=== PATIENT | male | born 1965 | race Caucasian/White ===

== ENCOUNTER 2018-06-10 06:43 | Inpatient (IN) | payer BC, SELFPAY ==
--- NOTE | 2018-05-29 14:02 | EKG12_ITS ---
Test Reason : Blood Pressure : / mmHG Vent. Rate : 061 BPM Atrial Rate : 061 BPM P-R Int : 136 ms QRS Dur : 084 ms QT Int : 396 ms P-R-T Axes : 001 -18 034 degrees QTc Int : 398 ms Normal sinus rhythm Leftward axis Confirmed by JUDE ROGERS, KELLEE ([id number]), fan mail editor HUMBERTO MCKEON ([id number]) on 06/01/2018 2:34:56 PM Referred By: Rj Carr Confirmed By:KELLEE ROQUE MD
[2018-05-29 14:17] VITALS: BP 134/82; PULSE 67; RESP 18; TEMP 36.3; O2SAT 93; BMI 33.8
[2018-05-29 16:45] LABS: Absolute Lymphocyte Count 2.12 X10^3/ul (0.83-4.51); Absolute Neutrophil Count 3.7 X10^3/uL (2.0-7.7); Basophil# 0.04 X10^3/uL; Basophil% 0.6 % (0-1); Eosinophil# 0.22 X10^3/uL; Eosinophils% 3.2 % (0-5); Hemoglobin 16.8 g/dl (13.0-16.5); Lymphocyte # 2.12 X10^3/ul (4.0); Lymphocyte % 30.6 % (19-41); Mean Corp Hgb Conc 33.6 g/gl (32-36); Mean Corpuscular Hgb 33.8 pg (27.0-32.0); Mean Corpuscular Volume 100.6 fL (80-94); Mean Platelet Vol. 9.5 fl (6.2-12.0); Monocyte# 0.82 X10^3/uL; Monocyte% 11.8 % (0-10); Neutrophil % 53.4 % (47-70); Platelet Count 177 K/mm3 (150-450); RBC Distribution Width CV 13.4 % (11.6-14.6); RBC Distribution Width SD 49.3 fl (35.1-43.9); Red Blood Count 4.97 M/mm3 (4.6-6.2); White Blood Count 6.9 K/mm3 (4.4-11.0)
[2018-05-29 16:47] LABS: POSITIVE COUNT NO; POSITIVE DIFFERENTIAL NO; POSITIVE MORPHOLOGY NO
[2018-05-29 17:00] LABS: Anion Gap 7 (5-15); BUN 17 mg/dL (7-18); BUN/Creat Ratio 15.6 RATIO (10-20); Calcium,Total 9.7 mg/dL (8.5-10.1); Chloride 104 mmol/L (98-107); Creatinine, Serum 1.09 mg/dL (0.70-1.30); EST Glomerular Filtration Rate 75 mL/min (>60); Est Glom Filt Rate - Afr Amer 91 mL/min (>60); Estimated Creatinine Clearance 89.59 ml/min; Glucose 78 mg/dL (74-106); Potassium 4.3 mmol/L (3.5-5.1); Sodium Level 141 mmol/L (136-145)
--- NOTE | 2018-06-02 14:06 | HP.PCM_ITS ---
History and Physical DATE OF SURGERY: 06/10/2018 SCHEDULED PROCEDURE: Revision left unicompartmental knee replacement to total knee arthroplasty HISTORY OF PRESENT ILLNESS: This is a 52-year-old male who presents today for ongoing pain in his left knee for the past 4-5 months. Patient underwent a previous left unicompartmental knee replacement approximately [address] Langston. Patient denied any postoperative infection or complications. Patient states his pain has been intermittent, aching, sharp, stabbing. Pain is increased with stairs, walking any amount of distance. Patient has difficult time with activities of daily living including housework, work, and working out. Patient feels unsafe with extended walking and with lifting. He has fallen and tripped/stumble secondary to his knee pain. Pain is primarily located over the medial joint line. Patient has tried previous prednisone and [id number] ibuprofen which has not provided any relief. He has been through formal physical therapy and home exercises with no relief in symptoms. Patient has tried rest, ice, and elevation with minimal relief. X-rays of the knee show lucencies under the tibial base plate consistent with loosening. Patient has medical history pertinent for hypertension. He currently denies any chest pain, shortness of breath, fevers chills, recent infections. After failing conservative measures and discussing all treatment options with Dr. Rj Carr the patient does wish to proceed with a revision left knee unicompartmental knee replacement to a left total knee arthroplasty. REVIEW OF SYSTEMS: ROS: Const: Denies change in appetite, fever and weight change. CV: Reports chest pain, but denies heart murmur and irregular heartbeat. Resp: Reports shortness of breath, but denies cough, pneumonia, tuberculosis and wheezing. GI: Reports constipation, diarrhea and heartburn, but denies nausea, rectal itching, bloody stools and vomiting. : Denies incontinence. Musculo: Denies leg swelling, pain, trouble walking and weakness. Skin: Reports tattoo, but denies Raynaud's and history of shingles. Neuro: Reports numbness/tingling but denies ambulatory dysfunction, dizziness and tremor. Psych: Reports stress, but denies anxiety and insomnia. Víctor/Lymph: Denies anemia, bleeding/bruising tendency and past transfusion. Reviewed, no changes. PAST MEDICAL HISTORY: Advance Care Plan: No Advance Directives Effective Date: 05/11/2018 PMH: Medical Problems: Arthritis, Vision Problems/Blind Accidents: None Surgical Hx: Hernia Repair - TIMKEN Tonsillectomy - TIMKEN LT Knee Arthroscopy, LT Knee Uni, RT Knee Arthroscopy Anesthesia Complications: None Assistive Devices: Glasses Reviewed and updated. SOCIAL HISTORY: SH: Marital: Single.Occupation: [employer].Work Status: Currently Working.Hand Dominance: Right-handed. Personal Habits: Cigarette Use: Heavy tobacco smoker (more than 10 cigarettes/ day).Alcohol: Occasionally.Drug Use: Denies Use.Enjoy Exercising: Exercises 1-3 x/month. Reviewed and updated. VITALS: Ht: 71 Wt: 255lb Wt k.668 BMI: 35.6 BP: 118/72 Pulse: 76 Resp: 16 T: 97.7 T: 36.5C ALLERGIES: Penicillin Biaxin Tape MEDICATIONS: No Active Medications PRE-OP EXAM: General appearance:NORMAL Other: Eyes: Conjunctivae and lids: NORMAL Pupils: ERR Ears, Nose, Mouth, and Throat: NORMAL Other: Inspection of lips, teeth and gums: NORMAL Other: Neck: Examination of neck: no masses noted. Respiratory: Assessment of respiratory effort: NORMAL Other: Auscultation of lungs: clear to auscultation no wheezes, rhonchi or rales. Cardiovascular: Auscultation of heart: regular rate and rhythm, no murmurs, gallops or rubs. Exam of carotid arteries: NORMAL Other: Gastrointestinal: Exam of abdomen: soft, nontender, nondistended bowel sounds present. PHYSICAL EXAMINATION: This without signs of infection. Patient does walk with a antalgic gait. There is tenderness to palpation over the medial joint line. Pain over the proximal medial tibia. Range of motion: Left knee lacks 3 of full extension to 120 of flexion. Patient does have positive effusion. Sensations intact to light touch. IMAGING STUDIES: X-rays of the left knee reveal a left medial unicompartmental knee replacement. There is lucencies under the tibial base plate consistent with loosening. IMPRESSION: 1. Painful left unicompartmental knee replacement with loosening 2. Hypertension PLAN: Dr. Carr did discuss and review with the patient all treatment options including surgical versus nonsurgical options. Patient does wish to proceed with the above-stated procedure. Potential risks, benefits, and complications of the procedure were discussed in detail including but not limited to , infection, nerve and blood vessel damage, persistent pain, numbness, tingling, paresthesias, blood clot, pulmonary embolism, and requirement for possible further surgery. The patient expressed full understanding and has no further questions for the doctor. Patient does agree to proceed with the above-stated procedure and has signed the surgery consent form. ___ I have re-examined the patient. There are no clinical changes since date of exam. ___ See progress notes for changes. ___ Dictated on admission Date: Time: Signature:
--- NOTE | 2018-06-08 16:04 | CASEMGMT ---
CONNIE MORGAN attempted to complete preop call for upcoming surgery. No answer, voice message left with return contact information. Per PAT patient plans to return home at discharge. SW will follow-up with patient after surgery.
[2018-06-10] VITALS (14 sets, daily range): BP systolic 94–144; BP diastolic 63–95; PULSE 59–99; RESP 16–20; TEMP 36.5–37.3; O2SAT 84–97; BMI 33.8; BMI 35.2
[2018-06-10] MEDS: oxyCODONE HCl Cr 10 MG Tablet PO (07:17)
[2018-06-10] MEDS: Acetaminophen 500 MG Tablet 1000 MG PO ×3 (07:18→21:54)
[2018-06-10] MEDS: Celecoxib 200 MG Capsule 400 MG PO (07:18)
--- NOTE | 2018-06-10 07:44 | PCM.OPRPT ---
Report of Operation Date of Procedure: 06/10/18 Pre-Operative Diagnosis: Failed left partial knee replacement, aseptic loosening, progression OA Post-Operative Diagnosis: Failed left partial knee replacement, aseptic loosening, progression OA Surgery/Procedure Performed:: Revision Left TKA entire tibia and femoral component Description of Surgical Findings:: Stable knee with good patella tracking electric motor controls assembler: Doreen Butler Type of Anesthesia:: General Anesthesiologist: Curtsi Cooper Special Medications: 600 mg clindamycin, 1 g vancomycin powder was placed in the wound, 1 g TXA at incision, 1 g TXA closure, 10 mg Decadron, joint cocktail (5 mg Duramorph, 30 mL of 0.5% Ropivicaine, 1000 units of epinephrine, 30 mg of Toradol) Specimen's removed: Bony cuts, 3 separate specimens were sent to microbiology Estimated Blood Loss (mL): 50 Fluids Replaced: 2000 ml crystalloid Description of Procedure: Implants used: 1. Samson size 7 triathlon posterior stabilized distal femoral component 2. Samson size 7 universal tibial baseplate 3. Perry X3 19 mm PS polyethylene 4. Perry X3 38 mm asymmetric patella Brief history operative indications: 52-year-old m with history of left knee partial knee replacement with increased pain and progressive osteoarthritis with radiographic findings with loss of joint space, osteophyte formation and subchondral sclerosis as well as radiolucencies around the tibial baseplate. Failed conservative measures as mentioned in the H&P. Discussion of total knee arthroplasty as well as risk and benefits were discussed the patient including but not limited to blood loss, DVTs, PEs, neurovascular damage, general risk of anesthesia including loss of life, and stiffness or instability were discussed with patient. Patient demonstrated understanding and was able to sign informed consent. Procedure: On the date of procedure patient's left lower extremity was marked in the preoperative area. The patient was then taken back to the operating room where the patient was placed on the table in the supine position. All bony prominences were identified a well-padded. Anesthesia assumed control of the C-spine and airway and remained controlled throughout the remainder of the procedure. A tourniquet was placed on the left upper thigh and the leg was prepped in a sterile fashion. The surgeon then scrubbed at this time .Upon reentering the room left lower extremity was draped in a standard orthopedic fashion. A timeout was then called and everyone agreed upon the side, the site, the procedure to be performed, patient's identity and antibiotics given. Esmarch bandage was used to exsanguinate the extremity and the tourniquet was placed up to 250 mmHg with the knee in flexion. A midline skin incision was made and sharp dissection was taken down through skin subcutaneous tissue and fat. The standard medial parapatellar incision was made and the patella was subluxed laterally. The standard deep MCL release was done and the fat pad was resected. Next our attention was directed to the femur. Navigation pins were placed, navigation was registered. The femoral component was removed using osteotomes and the salt. The distal femoral cutting block was pinned into place and 8 mm of distal femur resection was completed. The distal femoral cut was verified with navigation. The knee was then placed in deep flexion in the standard Emailage sizing guide was used to place the femoral component in 3? external rotation based on the posterior condyles. A size 7 4-in-1 cutting block was selected and pinned into place. The anterior cut was then made and checked for notching. The subsequent anterior chamfer cuts, posterior condylar cuts and posterior chamfer cuts were made while ensuring the MCL and LCL were protected. Our attention was then turned to the tibia where the tibial baseplate was removed using osteotomes and a saw. kooldiner tibial cutting guide was used to make the appropriate tibial cut 90 degrees from the mechanical axis. Navigation was then used to verify the cut. A size 7 tibial base plate was selected. the knee was flexed to 90 degrees and the soft tissues and posterior osteophytes were removed from the joint. 40 cc of the periarticular injection was injected into the posterior medial corner of the joint. Femoral notch cut was then made. The appropriate trials were then placed on the femur and tibia. A trial polyethylene was trialed to ensure proper balancing and stability of the knee. Patella tracking, was then verified and corrected appropriately as needed. The appropriate tibial internal rotation was then marked with a bovie. Our attention was then directed to the patella. The patella was everted and a flat resection was made. The lug holes were drilled and the patella trial was placed. Patellar tracking was checked and deemed appropriate. Once we were happy lug holes were drilled for the femur and trial components were removed. the tibia was subluxed and pinned into place and the keel was punched and the canal was reamed. Final components were verified and opened, and cement was mixed in a vacuum. Perry Simplex cement was used. The wound was copiously irrigated with normal saline. When the cement was ready the components were cemented into place starting with the tibia, femur and finally the patella. The trial poly component was placed and the knee was placed in full extension. All excess cement was removed in the process. Once the cement had cured the tracking, alignment and balance were verified and a size 19 mm PS polyethylene component was placed. Once the final components were placed the wound was copiously irrigated with normal saline solution and the periarticular injection was given. The wound was closed in a layer perea fashion using #1 vicryl interrupted sutures for the arthrotomy, 2-0 interrupted Vicryl suture for the subcuticular layer and rico for final skin closure. A sterile compressive dressing was then placed. The patient was then awakened from anesthesia, transferred to the [place] and transferred to the PACU for recovery. Post op plan DVT ppx: ASA 81mg, thigh high compression stockings Follow up: in office in 2 weeks for wound check PT: to start POD #0 at hospital, outpatient PT should be arranged. Grafts/Implants Used: Perry triathlon PS total knee replacement - Complications None - Admit VTE Documentation VTE Present on Admission: No VTE Mechan Device Prophylaxis: SCD's, Thigh High JYOTI Hose VTE Pharm Prophylaxis ordered?: Yes
[2018-06-10] MEDS: Lactated Ringers 1,000 ML 999 ML IV ×2 (08:00→12:57)
[2018-06-10] MEDS: Vancomycin IV 1,000 MG/20 ML Vial 1000 MG OPERA.SITE (11:22)
[2018-06-10] MEDS: Senna/Docusate Sodium 1 Tablet 2 TABLET PO ×2 (14:03→21:54)
[2018-06-10] MEDS: Famotidine 20 MG Tablet PO (14:04)
[2018-06-10] MEDS: Doxycycline 100 MG CAPSULE PO ×2 (14:04→21:54)
[2018-06-10] MEDS: oxyCODONE 5 MG Tablet PO ×2 (15:15→20:37)
[2018-06-10] MEDS: Aspirin 81 MG TAB.CHEW PO (16:04)
--- NOTE | 2018-06-10 16:59 | CHAPLAIN ---
Type of Pastoral Visit _x__ Initial Visit ___ Follow-up Visit ___ On-call Visit ___ General Patient Visit ___ Spiritual Assessment ___ Family Conference ___ Bereavement ___ Rapid Response ___ Code Blue ___ Other (describe below) Pastoral Care Referral From _x__ Patient ___ Family ___ Nurse ___ Physician ___ Sheet Turner ___ Assistant Plant Controller ___ Other (describe below) Sacrament/Intervention _x__ Active listening ___ Anointing ___ Confucianism ___ Bereavement ___ Communion _x__ Yarelis exploration ___ _x__ Life review _x__ Prayer ___ Reconciliation ___ Sacrament of Sick ___ Supportive presence ___ Wedding ___ Other (describe below) Pastoral Comments patient revealed some anxious thoughts about surgery and had wanted to talk to a run lead and have spiritual support; surgery was this morning and pt is doing fine; but he talked about his life growing up and how he has had a spiritual conversion and new outlook; prayer was welcomed; pt also sought out [employer] literature for reading
[2018-06-10] MEDS: Lactated Ringers 1,000 ML 125 ML IV (19:20)
--- NOTE | 2018-06-10 19:42 | NURSING ---
Pt states he can use the Nicotine patch due to the adhesive tape, states it has to be rotated, and tape can't be left on for several days.
[2018-06-11] MEDS: oxyCODONE 5 MG Tablet PO ×3 (02:36→13:18)
[2018-06-11 02:40] VITALS: BP 112/60; PULSE 78; RESP 16; TEMP 37.2; O2SAT 95
[2018-06-11] MEDS: Acetaminophen 500 MG Tablet 1000 MG PO ×2 (05:36→13:18)
[2018-06-11 07:37] LABS: Hematocrit 39.6 % (40-54); Hemoglobin 13.4 g/dl (13.0-16.5); Mean Corp Hgb Conc 33.8 g/gl (32-36); Mean Corpuscular Hgb 33.8 pg (27.0-32.0); Mean Corpuscular Volume 99.7 fL (80-94); Mean Platelet Vol. 10.1 fl (6.2-12.0); Platelet Count 164 K/mm3 (150-450); RBC Distribution Width CV 12.7 % (11.6-14.6); RBC Distribution Width SD 45.5 fl (35.1-43.9); Red Blood Count 3.97 M/mm3 (4.6-6.2); White Blood Count 17.1 K/mm3 (4.4-11.0)
[2018-06-11 07:42] LABS: Scan Indicated on CBC? Y/N NO
[2018-06-11 07:57] LABS: Anion Gap 11 (5-15); BUN 17 mg/dL (7-18); BUN/Creat Ratio 14.5 RATIO (10-20); Calcium,Total 8.4 mg/dL (8.5-10.1); Chloride 105 mmol/L (98-107); Creatinine, Serum 1.17 mg/dL (0.70-1.30); EST Glomerular Filtration Rate 69 mL/min (>60); Est Glom Filt Rate - Afr Amer 84 mL/min (>60); Estimated Creatinine Clearance 83.47 ml/min; Glucose 165 mg/dL (74-106); Potassium 4.3 mmol/L (3.5-5.1); Sodium Level 140 mmol/L (136-145)
[2018-06-11 08:00] VITALS: RESP 18
[2018-06-11] MEDS: Aspirin 81 MG TAB.CHEW PO (08:14)
[2018-06-11 09:24] VITALS: BP 118/70; PULSE 60; RESP 16; TEMP 36.4; O2SAT 96
[2018-06-11] MEDS: Doxycycline 100 MG CAPSULE PO (10:17)
[2018-06-11] MEDS: Celecoxib 200 MG Capsule PO (10:18)
[2018-06-11] MEDS: Famotidine 20 MG Tablet PO (10:18)
--- NOTE | 2018-06-11 14:00 | CASEMGMT ---
CONNIE CM in with patient to discuss discharge needs. Patient states that he needs a walker and shower chair. CONNIE MORGAN obtained scripts for FWW and shower chair. Patient is agreeable to [facility]. Referral sent to [facility] for FWW and shower chair and requested pricing on copay for shower chair. CONNIE MORGAN arranged for FWW to be delivered to [facility] prior to patient's discharge. CM to continue to follow this patient and plan for a safe discharge. Liliana WHITLEY, RN, CM
--- NOTE | 2018-06-11 14:06 | PCM.PN.ORT ---
Subjective: The patient was sitting in bedside chair upon examination. Patient denies any chest pain, shortness of breath, dizziness, lightheadedness, nausea or vomiting, or calf pain. Pain is controlled on medications. No adverse overnight events. Patient states he is doing well with physical therapy. Patient does wish to go home today. His pain is been controlled on medications. Objective: Vital signs stable and afebrile. Patient is able to plantarflex and dorsiflex actively. Sensation is intact to light touch to saphenous, sural, superficial and deep peroneal, and tibial distribution. Dressing is clean dry and intact. Negative Homans bilaterally, negative signs and symptoms of DVT. - Physical Exam General: Alert, Oriented x3, Cooperative, No apparent distress Vital Signs Temp Pulse Resp BP Pulse Ox 97.6 F L 60 16 118/70 96 06/11/18 09:24 06/11/18 09:24 06/11/18 09:24 06/11/18 09:24 06/11/18 09:24 Oxygen Flow Rate (L/min) 3 Oxygen Delivery Method Room Air Weight: 121.109 kg Body Mass Index (BMI) 35.2 Intake and Output for Last 24 Hours 06/09/18 06/10/18 06/11/18 23:59 23:59 23:59 Intake Total 4318 / 4318 1751 / 1751 Balance 4318 / 4318 1751 / 1751 Microbiology Past 72 Hours 06/10/18 Unknown Gram Stain - Final Tissue - Knee Wound Culture - Preliminary No growth-Final to follow 06/10/18 Unknown Gram Stain - Final Tissue - Knee Wound Culture - Preliminary No growth-Final to follow 06/10/18 Unknown Gram Stain - Final Tissue - Knee Wound Culture - Preliminary No growth-Final to follow Laboratory Tests Past 24 Hrs 06/11/18 06/11/18 05:44 05:44 WBC 17.1 H RBC 3.97 L Hgb 13.4 Hct 39.6 L MCV 99.7 H MCH 33.8 H MCHC 33.8 RDW 12.7 RDW Differential 45.5 H Plt Count 164 MPV 10.1 Sodium 140 Potassium 4.3 Chloride 105 Carbon Dioxide 24.0 Anion Gap 11 BUN 17 Creatinine 1.17 Estim Creat Clear Calc 83.47 Est GFR (MDRD) Af Amer 84 Est GFR (MDRD) Non-Af 69 BUN/Creatinine Ratio 14.5 Glucose 165 H Calcium 8.4 L Medical Necessity - Tobacco Use Smoking Status: Current every day smoker Assessment/Plan 1. S/P revision left total knee arthroplasty secondary to failed partial knee replacement and aseptic loosening with progression of osteoarthritis POD #1 2. Continue Pain Medications: Tylenol and OxyIR 3. DVT Prophylaxis: 81 mg aspirin times 4 weeks 4. PT/OT: Weightbearing as tolerated 5. H & H: 13.4/39.6, asymptomatic 6. Leukocytosis: Currently 17.1, afebrile. Patient did receive Decadron intraoperatively 7. Continue antibiotics while following cultures: Currently on doxycycline. No organisms seen on cultures. 8. Encouraged Incentive Spirometry 9. Disposition: Orthopedically stable, plan is for discharge home today. Prescriptions will be E scribed to [facility]. Patient will follow-up per postop instructions.
--- NOTE | 2018-06-11 14:15 | PCM.DC.TKR ---
Discharge Diet: No Restrictions Discharge Activity: May Not Drive May shower in (days): 1 - Turned dressing away from water Ice area for (Minutes): 20 - every hour while awake. Weight Bearing Status: Weight bearing as tolerated Elevate: Operative Extremity Additional Activity Instructions:: Wear elastic stockings for 2 weeks after your surgery. Call your doctor if your incision/area has: Continuous Slow Oozing, Sudden Increased Bleeding, Increased Pain/ Swelling, Increased Redness, Foul Smelling Discharge Call your doctor if you observe: Fever of 101 or Higher, Coldness, Increased Pain, Numbness or Tingling, Change in Color, Calf discomfort, Uncontrolled pain Remove Dressing in (days):: 4 - Okay to remove on June 15, 2018 Additional Instructions: Follow [facility] postop instructions Allergies/Adverse Reactions: Allergies Penicillins Allergy (Verified 05/29/18 14:06) Hives sulfamethoxazole [From Bactrim] Allergy (Verified 05/29/18 14:06) Anaphylaxis trimethoprim [From Bactrim] Allergy (Verified 05/29/18 14:06) Anaphylaxis adhesive tape Adverse Reaction (Verified 05/29/18 14:06) Rash Medications to take at Discharge Acetaminophen [Tylenol] 1,000 mg PO Q8 #90 tab 06/11/18 Aspirin [Aspirin, Baby] 81 mg PO BIDCM #60 tab.chew 06/11/18 Doxycycline 100 mg PO BID #12 cap 06/11/18 Famotidine [Pepcid] 20 mg PO DAILY #30 tab 06/11/18 Oxycodone [Oxyir] 5 - 10 mg PO Q4H PRN PRN 6 Days #80 tablet 06/11/18 Senna/Docusate Sodium [Senokot-S] 2 tab PO BID #20 tab 06/11/18 The following prescriptions were given: Oxycodone [Oxyir] 5 - 10 mg PO Q4H PRN PRN 6 Days #80 tablet PRN Reason: Mod-Severe Pain (4-08/05) Acetaminophen [Tylenol] 1,000 mg PO Q8 #90 tab Famotidine [Pepcid] 20 mg PO DAILY #30 tab Aspirin [Aspirin, Baby] 81 mg PO BIDCM #60 tab.chew Doxycycline 100 mg PO BID #12 cap Senna/Docusate Sodium [Senokot-S] 2 tab PO BID #20 tab Primary Care Physician: Enoch Carter DO [Primary Care Provider] - Test Results: Test results from this visit will be discussed in further detail at your follow-up appointment, if applicable. Please Follow Up With: Physical therapy at [facility] When: 06/15/18 @ 8:00 am Please Follow Up With: Berhane Craft PA-C When: 06/24/18 @ 9:00 am
[2018-06-11 14:22] VITALS: BP 122/71; PULSE 67; RESP 16; TEMP 36.9; O2SAT 96
[2018-06-11 16:56] VITALS: BP 148/70; PULSE 74; RESP 18; TEMP 36.7; O2SAT 97
== END 2018-06-11 17:00 | disposition home or self-care (01) | DRG 468 ==
LOC: ACINP 06:44 → MS3 08:21
PROVIDERS: Admitting Provider Specialist; Family Provider Family Medicine; PCP Family Medicine; Visit Provider Specialist
PROC: 0SPD0JZ Removal of Synthetic Substitute from Left Knee Joint, Open Approach (ICD-10-PCS; CPT 27447; principal; 2018-06-10 08:50)
DX: T84.033A Mechanical loosening of internal left knee prosthetic joint, initial encounter (principal); M17.12 Unilateral primary osteoarthritis, left knee; F17.210 Nicotine dependence, cigarettes, uncomplicated
CPT/HCPCS: 36415; 73560; 80048; 85025; 85027; 87070; 87075; 87077; 87081; 87102; 87205; 87206; 93005; 94762; 97110; 97116; 97162; 97166; 97530; 97802; 99251; 99406; C1776; J7040; J7120; G0463

== ENCOUNTER 2018-06-24 05:02 | Emergency (ER) | payer BC, SELFPAY ==
[2018-06-24 05:03] VITALS: BP 130/90; PULSE 82; RESP 18; TEMP 36.9; O2SAT 97; BMI 34.2
[2018-06-24] MEDS: oxyCODONE 5 MG Tablet 10 MG PO (05:24)
--- NOTE | 2018-06-24 05:55 | ED.DCSUM_ITS ---
- ER Visit Summary Date of Service: 06/24/18 Chief Complaint: Left thigh pain History of Present Illness: The patient is a 52 M is been complaining of pain to the lateral portion of his left thigh for the past 3 days. He had left total knee revision on June [address] Carr. Patient started physical therapy on the . Patient has been out of his aspirin and oxycodone that he was given after the surgery for the past day or 2. He was unable to sleep tonight secondary to pain. He has an appointment with orthopedics at 9 AM this morning. He denies chest pain or shortness of breath. Physical Examination: Vital signs are unremarkable. Patient is standing at bedside. He is in no acute distress. Heart is regular rate and rhythm. Lung sounds are clear. Abdomen is soft nontender. Lower external examination reveals tenderness along IT band. No palpable cords or significant edema is noted. He is a compression sock in place to just above his knee joint. Back examination was no focal tenderness. There is no tenderness over the sciatic notch. Test Results: [] Emergency Department Course and Treatment: Venous ultrasound of the leg will be ordered and checked out to oncoming physician. Patient is treated with a dose of oxycodone here. Patient should be able to be discharged to make it to his doctor's appointment this morning. Treatment Plan: [] Disposition: Anticipated discharge Impression: Left thigh pain with recent knee replacement This note was generated with [employer] dictation software. It may contain incorrect words, spelling, and punctuation that were not noted in review of the chart prior to signing ED Disposition - Plan for ED Patient: Chief Complaint: Lower Extremity Injury Referrals: Enoch Carter DO [Primary Care Provider] -
--- NOTE | 2018-06-24 05:55 | ED.DEP ---
ED Disposition - Plan for ED Patient: Disposition: Home or Assisted Living Chief Complaint: Lower Extremity Injury Instructions: ED Strain Muscle Ext Referrals: Berhane Craft PA-C [PHYSICIAN MORTUARY OPERATIONS MANAGER] - Keep Sheree appointment
[2018-06-24 07:26] VITALS: PULSE 86; RESP 14; O2SAT 99
== END 2018-06-24 08:23 | disposition home or self-care (01) ==
PROVIDERS: Emergency Provider Emergency Medicine; Family Provider Family Medicine; PCP Family Medicine
DX: M79.652 Pain in left thigh (principal); Z72.0 Tobacco use; Z96.652 Presence of left artificial knee joint
CPT/HCPCS: 93971; 99282

== ENCOUNTER 2021-11-28 06:31 | Outpatient (CLI) | payer OTHER, SELFPAY ==
--- NOTE | 2021-11-28 06:36 | CT_ITS ---
STUDY: LOW DOSE CT LUNG CANCER SCREENING REASON FOR EXAM: Male, 56 years old. SCREENING. Patient smoked 1 pack per day for 40 years. RADIATION DOSAGE (If Supplied By Facility): CTDIvol = ( 4.02 ) mGy, DLP = ( 137.93 ) mGycm TECHNIQUE: No contrast was administered. Low dose technique was utilized (average mAS-38 and kVp 120). 1.25 mm axial source images with a slice interval of 1.25-mm were reconstructed in lung windows. 2.5 mm axial source images with a slice interval of 2.5-mm were reconstructed in lung windows. 5.0 mm axial source images with a slice interval of 5.0-mm were reconstructed in soft tissue windows. Nodule measured using lung windows on PACS and/or independent workstation with automated measurement of minimum and maximum diameter. Nodule measurement reported as average diameter rounded to the nearest whole number. Growth is defined as an increase ins size of greater than 1.5 mm. COMPARISON: None. NODULES: No suspicious nodules are seen. Emphysema: Hyperinflation. Mild degree of emphysematous changes. Linear scarring is seen along the anterior medial aspect of the right lower lobe. Minimal scarring is also seen along the anterior aspect of the lingular segment of the left upper lobe. Endobronchial lesion: None Aorta: Unremarkable Coronary arteries: Mild degree of coronary artery calcification. Heart: Unremarkable Pulmonary artery: Unremarkable Mediastinal nodes: Small mediastinal lymph nodes. Other chest and abdominal findings: Degenerative changes of the thoracic spine. CT/Low Dose CT Lung Screening IMPRESSION: Lung-RADS category 2 - Continue annual screening with LDCT in 12 months. IMPORTANT NOTES FOR USE: ACR Lung-RADS Version 1.1 Assessment Categories Release Date: 2018 Category: Coded 0-4 bases on nodule(s) with highest degree of suspicion. Negative screen is defined as categories 1 and 2; a positive screen is defined as categories 3 and 4. Category 3 and 4A nodules that are unchanged on interval CT should be coded as category 2, and individuals returned to screening in 12 months. Category 4X: Category 3 or 4 nodules with additional imaging findings that increase the suspicion of lung cancer, such as spiculation, GGN that doubles in size in 1 year, enlarged lymph notes, etc. Category Modifiers: S (significant finding unrelated to lung cancer) Electronically Signed: Waldo Adorno MD at 8:34 EST ,
== END 2021-11-28 23:59 | disposition short-term general hospital (02) ==
PROVIDERS: PCP Family Medicine; Referring Provider Internal Medicine Pulmonary Disease; Visit Provider Internal Medicine Pulmonary Disease
DX: Z12.2 Encounter for screening for malignant neoplasm of respiratory organs (principal); Z87.891 Personal history of nicotine dependence
CPT/HCPCS: 71271

== ENCOUNTER 2024-05-13 10:52 | Emergency (ER) | payer OTHER, SELFPAY ==
[2024-05-13 10:52] VITALS: BP 153/89; PULSE 80; RESP 14; TEMP 36.3; O2SAT 97; BMI 35.6
--- NOTE | 2024-05-13 11:19 | VDLE_ITS ---
Reason For Study: Left leg pain RIGHT LEFT CFV is compressible, spontaneous, phasic, GSV is normal. competent and demonstrates normal CFV is compressible, spontaneous, phasic, augmentation. competent, and demonstrates normal Procedure augmentation. This is a venous duplex using B-mode, color FV is compressible, spontaneous, phasic, flow and spectral Doppler. competent and demonstrates normal Exam performed portable in ED. augmentation. A preliminary report was called and/or faxed POP V is compressible, spontaneous, phasic, to Raul CASH. competent and demonstrates normal augmentation. T/P Trunk is compressible. PTV is compressible. LT PerV is compressible. Nonvascularized structure is noted in the left popliteal fossa that measures 1.46 x 3.99 cm. VL/Venous Duplex US, Unilateral Interpretation Summary There is no evidence of left lower extremity deep vein thrombosis. Left great s aphenous vein appears patent and compressible segmentally. Heterogenous left popliteal fossa structur e measuring four 1.46 x 3.99 cm diameter. Nonvascular. Complex in nature. Possible hemorrhage within the Lizarraga's cyst. Clinical correlation would be appropriate. Normal flow patterns right common femoral vein Ordering Physician: Lily Carter Referring Physician: Enoch Carter Performed By: Liliana Stock RVT
--- NOTE | 2024-05-13 11:24 | ED.VIS.LOWEX ---
HPI History of Present Illness Chief Complaint: Lower Extremity Injury Narrative Narrative: Patient presenting today due to swelling and pain to his left knee he has had over the past 2 months that has progressively been getting worse. He reports that about a month ago he went to [facility] and had an x-ray of his left knee that was unremarkable. He has been trying to ice his left knee to help with the swelling with minimal relief. He denies any injury to his left knee. 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 Over the past week he has noticed pain and swelling in his left calf and intermittent paresthesias to his left foot. He denies any history of blood clots or recent surgery/travel/immobilization. PFSH PFSH Home Medications ?Medication ?Instructions ?Recorded ?Last Taken ?Type hydrocodone-acetaminophen 5-325mg 1 tab PO Q4H PRN PRN Pain 2 days 05/13/24 Unknown Rx 5mg-325mg #8 TABLETS Allergy/AdvReac Type Severity Reaction Status Date / Time Penicillins Allergy Hives Verified 05/13/24 10:53 sulfamethoxazole (From Allergy Anaphylaxis Verified 05/13/24 10:53 Bactrim) trimethoprim (From Bactrim) Allergy Anaphylaxis Verified 05/13/24 10:53 adhesive tape AdvReac Rash Verified 05/13/24 10:53 Surgical History H/O knee surgery Social History Smoking Status: Current some day smoker tobacco type: cigarettes ROS ROS ED Constitutional Constitutional ED: Denies chills or fever(s) Cardiovascular Cardiovascular: Denies chest pain Respiratory/Chest Respiratory/Chest: Denies dyspnea Musculoskeletal Musculoskeletal: Reports arthralgias and myalgias Integumentary Denies rash Neurologic Neurologic: Reports paresthesias; Denies weakness EXAM Physical Exam Const Vital Signs: 05/13/24 10:52 05/13/24 12:24 Temperature 97.3 F L 98.2 F Temperature Source Temporal Pulse Rate 80 82 Respiratory Rate 14 16 Blood Pressure 153/89 H 145/78 H Blood Pressure Mean 110 100 Pulse Ox 97 99 Oxygen Delivery Method Room Air Positive well nourished, well developed and no apparent distress General Appearance ED: well developed HEENT Reports normocephalic and head/scalp atraumatic Mouth ED: Yes moist mucous membranes normal Eyes PERRL and EOMs intact bilaterally Neck full ROM and supple Chest Wall inspection of chest normal Resp normal respiratory effort and clear to auscultation bilaterally Cardio regular rate and regular rhythm Back/Spine normal ROM and normal to inspection Extremity full ROM Extremity Narrative: Slight swelling to the left knee in comparison to the right, extensor mechanism intact with full ROM. No warmth or erythema to the left knee, no signs of septic joint. No swelling to the left calf. Negative Homans' sign on the left. Left DP pulse 2+, good capillary refill, sensation intact. Neuro oriented x3, CN's II-XII intact bilaterally, moves all extremities, no focal motor deficits and no sensory deficits noted Sensorium / Orientation: awake and alert Psych mental status grossly normal and thought process normal Skin no rashes or lesions noted and no wounds MDM MDM MDM Narrative Medical decision making narrative: Patient presenting today due to swelling and pain to his left knee has had over the past 2 months that has been progressively getting worse. He has also had pain and subjective swelling to his left calf over the past week. Venous duplex ultrasound of the left lower extremity will be obtained to rule out DVT, x-ray of the left knee will be obtained. He was given ibuprofen for pain. Ultrasound is negative for DVT but does show possible hemorrhage within a Lizarraga's cyst. X-ray of the knee does show possible loosening of the femoral component. Patient has had this in the past and did have to have revision of his knee arthroplasty. I did communicate this finding with the patient, he has been given an orthopedic referral and encouraged that he call tomorrow to make a follow-up appointment. He was sent home with a prescription for [place] and was given an Armando wrap and RICE instructions. Patient discharged in stable condition. Radiography X-Ray: Read by ED Physician and Read by Radiologist Diagnostic Testing: Clinical Impression(s) from Imaging Studies Venous Doppler Study 05/13/24 11:19 Interpretation Summary There is no evidence of left lower extremity deep vein thrombosis. Left great saphenous vein appears patent and compressible segmentally. Heterogenous left popliteal fossa structure measuring four 1.46 x 3.99 cm diameter. Nonvascular. Complex in nature. Possible hemorrhage within the Lizarraga's cyst. Clinical correlation would be appropriate. Normal flow patterns right common femoral vein Ordering Physician: Lily Carter Referring Physician: Enoch Carter Performed By: Liliana Stock, [facility] Knee X-Ray 05/13/24 11:25 IMPRESSION: 1. No acute fracture or dislocation. 2. Status post knee arthroplasty with possible loosening of the femoral component. 3. 5 cm oval lytic area with ill-defined margins in the proximal metaphysis of the tibia distal to the prosthesis of uncertain etiology and significance. Electronically Signed: Albaro Linda MD at 12:24 EDT , Discharge Plan Triage Chief Complaint: Lower Extremity Injury ED Midlevel Provider: Lily Carter ED Provider: Natalee Ge Dx/Rx/DC Orders Clinical Impression: Effusion, left knee, Strain of left calf muscle Instructions: ED Knee Effusion Prescriptions: New hydrocodone-acetaminophen 5-325 mg tablet 1 tab PO Q4H PRN PRN (Reason: Pain) 2 Days Qty: 8 0RF Stand Alone Forms: ED Work / School Excuse Primary Care Provider: Enoch Carter Referrals: Enoch Carter DO [Primary Care Provider] - Rj Carr MD [Med Staff - Active Staff] - 5-7 Days Activity Restrictions/Additional Instructions: Please follow-up with Dr. Carr, continue to use the Armando wrap and elevate/ice your knee. Print Language: Azeri Disposition Disposition: Home, Self Care Discharge Date/Time: 05/13/24 12:25
--- NOTE | 2024-05-13 11:25 | RAD_ITS ---
STUDY: X-RAY - LEFT KNEE REASON FOR EXAM: Male, 58 years old. pain, swelling TECHNIQUE: 3 view(s) of the knee. COMPARISON: 06/10/2018 FINDINGS: Normal visualized distal femur. Normal visualized proximal tibia and fibula. Normal proximal tibiofibular articulation. Status post total knee arthroplasty. Linear radiolucency surrounding the femoral component of the arthroplasty and loosening cannot be excluded. 5 cm oval lytic area within the proximal tibia distal to the distal portion of the prosthesis of uncertain significance. . The soft tissue structures are unremarkable. RAD/Knee 3 Views IMPRESSION: 1. No acute fracture or dislocation. 2. Status post knee arthroplasty with possible loosening of the femoral component. 3. 5 cm oval lytic area with ill-defined margins in the proximal metaphysis of the tibia distal to the prosthesis of uncertain etiology and significance. Electronically Signed: Albaro Linda MD at 12:24 EDT ,
[2024-05-13] MEDS: Ibuprofen 600 MG Tablet PO (11:42)
[2024-05-13 12:24] VITALS: BP 145/78; PULSE 82; RESP 16; TEMP 36.8; O2SAT 99
== END 2024-05-13 12:25 | disposition home or self-care (01) ==
PROVIDERS: Emergency Provider Emergency Medicine; PCP Family Medicine; Visit Provider Emergency Medicine
DX: S86.112A Strain of other muscle(s) and tendon(s) of posterior muscle group at lower leg level, left leg, initial encounter (principal); F17.210 Nicotine dependence, cigarettes, uncomplicated; M25.462 Effusion, left knee; Z96.659 Presence of unspecified artificial knee joint; M79.89 Other specified soft tissue disorders
CPT/HCPCS: 73562; 93971; 99282

== ENCOUNTER 2024-05-17 16:00 | Emergency (ER) | payer OTHER, SELFPAY ==
[2024-05-17 16:00] VITALS: PULSE 97; RESP 16; TEMP 36.2; O2SAT 96; BMI 33.2
[2024-05-17 16:02] VITALS: BP 107/82
--- NOTE | 2024-05-17 17:58 | ED.VIS.LOWEX ---
HPI History of Present Illness Chief Complaint: Lower Extremity Injury Informant: patient Narrative Narrative: Patient returns secondary to continued left knee pain and swelling. He was seen in the ER by myself a couple days ago with a 2-month history of increasing left knee pain and swelling. He states that when he is up on his feet at work he has noted significant swelling. He was given a course of [place], however is out of this. He states his primary care physician told him that orthopedics would have to write him any pain medication. He states he called around to several different orthopedics to try to be seen and does not an appointment until the through [facility]. PFS PFS Home Medications ?Medication ?Instructions ?Recorded ?Last Taken ?Type hydrocodone-acetaminophen 5-325mg 1 tab PO Q4H PRN PRN Pain 2 days 05/13/24 Unknown Rx 5mg-325mg #8 TABLETS tramadol 50 mg tablet 100 mg (2 x 50 mg) PO Q6H PRN pain 05/17/24 Unknown Rx 3 days #24 tabs Allergy/AdvReac Type Severity Reaction Status Date / Time Penicillins Allergy Hives Verified 05/17/24 16:00 sulfamethoxazole (From Allergy Anaphylaxis Verified 05/17/24 16:00 Bactrim) trimethoprim (From Bactrim) Allergy Anaphylaxis Verified 05/17/24 16:00 adhesive tape AdvReac Rash Verified 05/17/24 16:00 Surgical History H/O knee surgery Social History Smoking Status: Current every day smoker tobacco type: cigarettes ROS ROS ED Constitutional Constitutional ED: Denies chills or fever(s) Eyes Eyes: Denies discharge from eye(s) ENT ENT ED: Denies discharge from eye(s), rhinorrhea or sore throat Cardiovascular Cardiovascular: Denies chest pain Respiratory/Chest Respiratory/Chest: Denies cough or dyspnea Gastrointestinal Gastrointestinal: Denies abdominal pain, nausea or vomiting Musculoskeletal Musculoskeletal: Reports extremity pain; Denies back pain Integumentary Denies Abrasions or rash Neurologic Neurologic: Denies headache(s) or weakness Psychiatric Psychiatric: Denies anxiety or depression Allergic/Immunologic Allergic/Immunologic ED: Denies lip swelling or urticaria EXAM Physical Exam Const Vital Signs: 05/17/24 16:00 05/17/24 16:02 05/17/24 18:00 Temperature 97.1 F L 98.0 F Temperature Source Temporal Temporal Pulse Rate 97 74 Respiratory Rate 16 18 Blood Pressure 107/82 H 122/89 H Blood Pressure Mean 90 100 Pulse Ox 96 95 Oxygen Delivery Method Room Air Room Air 05/17/24 18:20 Temperature 98.0 F Temperature Source Pulse Rate 74 Respiratory Rate 18 Blood Pressure 122/89 H Blood Pressure Mean 100 Pulse Ox 95 Oxygen Delivery Method Positive well nourished and well developed General Appearance ED: well developed HEENT Reports moist mucous membranes Chest Wall inspection of chest normal and palpation of chest normal Resp normal respiratory effort and clear to auscultation bilaterally Cardio regular rate and regular rhythm GI non-tender Palpation: soft Extremity Extremity Narrative: Mild diffuse tenderness about the left knee. No erythema. No focal joint line tenderness. Edema is appreciated. Good distal pulses with no calf tenderness. Skin no wounds Lesions: no lesions MDM MDM MDM Narrative Medical decision making narrative: Patient's workup from a few days ago was reviewed. He had a venous ultrasound that revealed evidence of a Lizarraga's cyst but no evidence of DVT. X-rays revealed a joint effusion. Patient has no evidence of acute infection. We discussed using a compression sleeve on his leg to help with swelling when he is up on his feet. I offered him crutches but he states he has these at home that he can use as needed. Armando wrap was applied today. I will write him a short course of tramadol for pain, however I advised him that the emergency room cannot write him extended prescriptions for pain medication. He was given some work restrictions. Discharge Plan Triage Chief Complaint: Lower Extremity Injury ED Provider: Natalee Ge Dx/Rx/DC Orders Clinical Impression: Effusion, left knee, Left knee sprain Instructions: ED Knee Effusion, ED Knee Sprain Prescriptions: New tramadol 50 mg tablet 100 mg PO Q6H PRN (Reason: pain) 3 Days Qty: 24 0RF No Action hydrocodone-acetaminophen 5-325 mg tablet 1 tab PO Q4H PRN PRN (Reason: Pain) 2 Days Qty: 8 0RF Stand Alone Forms: ED Work / School Excuse Primary Care Provider: Enoch Carter Referrals: Enoch Carter DO [Primary Care Provider] - Print Language: Mozambican Disposition Disposition: Home, Self Care Discharge Date/Time: 05/17/24 18:24
[2024-05-17 18:00] VITALS: BP 122/89; PULSE 74; RESP 18; TEMP 36.7; O2SAT 95
[2024-05-17 18:20] VITALS: BP 122/89; PULSE 74; RESP 18; TEMP 36.7; O2SAT 95
== END 2024-05-17 18:24 | disposition home or self-care (01) ==
LOC: ED 18:07
PROVIDERS: Emergency Provider Emergency Medicine; PCP Family Medicine; Visit Provider Emergency Medicine
DX: S83.92XA Sprain of unspecified site of left knee, initial encounter (principal); X58.XXXA Exposure to other specified factors, initial encounter; M71.22 Synovial cyst of popliteal space [Baker], left knee; F17.210 Nicotine dependence, cigarettes, uncomplicated
CPT/HCPCS: 99282